=== PATIENT | male | born 1975 | race Caucasian/White ===

== ENCOUNTER 2022-03-27 08:54 | Emergency (ER) | payer SELFPAY ==
[~2022-03-27] VITALS: Ht 180 cm; Wt 86.2 kg
[2022-03-27] MEDS ORDERED: SEPTDS PO (09:11)
[2022-03-27] MEDS ORDERED: KEFLEX 500 MG E2 CAP PO (09:11)
== END 2022-03-27 10:10 | disposition home or self-care (01) ==
LOC: ED 08:54
DX: L03.115 Cellulitis of right lower limb (principal)